=== PATIENT | male | born 1975 | race Caucasian/White ===

== ENCOUNTER 2023-07-16 22:25 | Emergency (ER) | payer OTHER, SELFPAY ==
[2023-07-16 22:26] VITALS: BMI 23.6
[2023-07-16 22:32] VITALS: BP 125/82
[2023-07-16 23:00] VITALS: BP 135/81
[2023-07-16] MEDS: REGLAN 10 MG IV (23:14)
[2023-07-16] MEDS: NSS 1000 IV (23:15)
[2023-07-16] MEDS: MORPHINE SULFATE 4 MG IV (23:15)
[2023-07-16 23:27] LABS: % Basophils 0.6 % (0-2); % Eosinophils 1.1 % (0-6); % Immature Granulocytes 0.5 % (0-0.5); % Lymphocytes 15.4 % (20.5-51.1); % Monocytes 5.7 % (1.7-9.3); % Neutrophils 76.7 % (42.2-75.2); Absolute Basophils 0.1 10^3/uL (0-0.2); Absolute Eosinophils 0.2 10^3/uL (0-0.7); Absolute Immature Granulocytes 0.1 10^3/uL (0-0.05); Absolute Lymphocytes 2.5 10^3/uL (1.2-3.4); Absolute Monocytes 0.9 10^3/uL (0.1-0.6); Absolute Neutrophils 12.5 10^3/uL (1.4-6.5); Hematocrit 36.6 % (39.0-52.0); Mean Corp Hgb Conc. 35.5 g/dL (33.0-37.0); Mean Corpuscular Hgb 30.1 pg (27.0-31.0); Mean Corpuscular Volume 84.7 fL (80.0-94.0); Mean Platelet Volume 9.2 fL (7.4-10.4); Nucleated Red Blood Cells % 0 % (-); Platelet Count 257 10^3/uL (130-400); Red Blood Cell Count 4.32 10^6/uL (4.70-6.10); Red Cell Dist. Width 13.2 % (11.5-14.5); White Blood Cell Count 16.3 10^3/uL (4.8-10.8)
--- NOTE | 2023-07-16 23:37 | ED.GENMED ---
History of Present Illness
General
Chief Complaint: Abdominal Symptoms
Source: patient and ambulance crew
Exam Limitations: none
Time Seen by Provider: 07/16/23 22:54
Nursing documentation reviewed up to this point in time: agreed with
Travel History
Have you had any contact with someone who has COVID-19?: No
Do you have any symptoms of coronavirus? Fever > 100 degrees, chills, cough, shortness of breath, sore throat, loss of taste or smell, muscle aches, or headache?: No
History of Present Illness
History of Present Illness:
This is a 48-year-old gentleman who reports history of 1 prior episode of acute pancreatitis occurring 4 years ago. Patient states he was hospitalized at that time and states pancreatitis was related to alcohol use. He has remained sober since
then and has had no recurrent episodes but tonight while out to dinner with a friend he developed generalized crampy abdominal pain that began shortly after dinner approximately 8:30 PM but has persisted, worsening accompanied with nausea and dry
heaves. Abdominal pain is generalized, crampy and severe in nature associated with shortness of breath, intermittent cramping of his hands. He states current symptoms feel similar to previous episode of pancreatitis.
He does admit to feeling somewhat short of breath with waves of pain describing this as a sense of difficulty taking a deep breath but denies increased abdominal pain with deep breath, denies cough, denies fever but admits to intermittent chills,
intermittent sweats.
No close contacts with similar symptoms.
He denies diarrhea or constipation, denies back pain or chest pain. No dysuria no urgency nor hematuria, denies flank pain. He has not taken anything for discomfort.
No definitive aggravating or relieving factors.
No recent travel nor recent antibiotic use.
He takes no medicines on a daily basis.
He received IV Zofran 4 mg prehospital with mild improvement in nausea but no improvement in pain.
Past History
Past History
ED Past Medical History: Other (Acute pancreatitis related to alcohol use 2020.)
ED Past Surgical History: Appendectomy
Social History
Tobacco: Non-smoker
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
Drug: Marijuana
Personal:
Living: with family
Family History
Family History: Other (Noncontributory)
Phy Exam
Physical Exam
Physical Exam:
GENERAL: 48-year-old gentleman appears his stated age, awake and alert, appears in moderate distress related to pain. Somewhat anxious. Cooperative.
EYE: pupils equal and reactive. anicteric
NECK: Supple, nontender, no meningismus, no significant adenopathy.
ENT: oral mucosa is moist. No rhinorrhea.
CARDIAC: Regular rate and rhythm. no murmur.
LUNGS: Clear breath sounds bilaterally, no acute respiratory distress, no wheezes/rales/rhonchi
ABDOMEN: Soft, nondistended, mild generalized tenderness with deep palpation, no r/g, no cvat. normoactive BS.
NEUROLOGICAL: Alert and oriented x3, no focal neuro deficits.
SKIN: Warm and dry, normal color, skin intact. No rash.
MUSCULOSKELETAL: No C/C/E. peripheral pulses are full and equal b/l. No palpable tenderness.
PSYCH: Mildly anxious. Cooperative.
Course
Orders/Labs/Results
Orders:
Orders
07/16/23 23:04
Electrocardiogram (*1) Urgent
Reason for Study: Abdominal Pain
EKG- Treatment ONCE
0.9% Sodium Chloride 1000 ml [Nss] 1,000 ml IV BOLUS
Morphine Sulfate 4 mg IV NOW STA
07/16/23 23:06
Urinalysis Reflex To Culture Urgent
Metoclopramide [Reglan] 10 mg IV NOW STA
07/16/23 23:13
Complete Blood Count/With Diff Urgent
Comprehensive Metabolic Panel Urgent
Lactic Acid Urgent
Lipase Urgent
07/17/23 01:47
CT Abd/pelvis W Iv Cont Urgent
Comment:
Reason For Exam: gen crampy abd pain, N/V
07/17/23 03:22
Dicyclomine HCl [Bentyl] 20 mg IM NOW STA
Abnormal Lab Results
07/16/23
23:13
WBC 16.3 H 10^3/uL
(4.8-10.8)
RBC 4.32 L 10^6/uL
(4.70-6.10)
Hct 36.6 L %
(39.0-52.0)
Abs Immat Gran (auto) 0.1 H 10^3/uL
(0-0.05)
Absolute Neuts (auto) 12.5 H 10^3/uL
(1.4-6.5)
Absolute Monos (auto) 0.9 H 10^3/uL
(0.1-0.6)
Neutrophils % 76.7 H %
(42.2-75.2)
Lymphocytes % 15.4 L %
(20.5-51.1)
Carbon Dioxide 20 L mmol/L
(22-30)
07/16/23 23:13
07/16/23 23:13
Vital Signs
Initial and Last Documented VS:
Initial Vital Signs
Temp Pulse Resp BP Pulse Ox
98 F 87 20 125/82 100
07/16/23 22:32 07/16/23 22:32 07/16/23 22:32 07/16/23 22:32 07/16/23 22:32
Last Documented Vital Signs
Temp Pulse Resp BP Pulse Ox
98 F 81 16 132/91 99
07/16/23 22:32 07/17/23 02:18 07/17/23 02:18 07/17/23 02:00 07/17/23 02:18
MDM/Problems Addressed
Differential Diagnosis Includes:
Concern for acute gastroenteritis, pancreatitis, small bowel obstruction. Patient has no risk factors for ischemic bowel.
Labs are pending.
Will give IV fluids, IV pain medication and antiemetic.
Will continue to observe and consider imaging depending on results, clinical course.
Chronic conditions affecting care:
1 prior episode of acute pancreatitis 4 years ago.
*Radiology
Radiology exam reviewed: radiology read reviewed
*Pulse Oximetry
Patient hypoxic: no
*EKG
Interpreted by ED Provider?: Yes
Interpretation: normal
Comparison EKG: no comparison EKG present
Rate: normal
Rhythm: sinus arrhythmia
[place]: normal axis
Interval: normal interval
QRS Pattern: normal QRS
Ischemia: no ischemia
*Mask Design Engineer Interpretation
Rate: normal
Interpretation: normal
*Critical Care Note
Total Time (30-74mins, 75-104mins- exclusive of procedures): Not Applicable
Update Note
Update Note:
07/17/2023 0322 AM
Patient has had no further nausea/vomiting after IV metoclopramide, IV fluids.
Overall appears much more comfortable but continues with intermittent generalized crampy abdominal pain. He has had no diarrhea.
Labs show mildly elevated white blood cell count of 16 otherwise unremarkable, normal LFTs, normal lipase, no evidence of pancreatitis.
CAT scan shows questionable/mild colitis of the descending and sigmoid colon versus contracted state. No small bowel obstruction, no free fluid nor free air. Unremarkable CT appearance of the gallbladder, biliary tract and pancreas. No
hydronephrosis nor obstructing stone.
I suspect acute gastroenteritis versus a mild colitis.
Given IM dose of Bentyl and trial oral fluids/ice chips.
07/17/2023 0454 AM
Patient resting comfortably, tolerating ice chips/sips of water and reports significant improvement in intermittent crampy abdominal pain.
Abdomen is soft and nontender.
Will discharge to home with prescription for Zofran ODT for as needed nausea, Bentyl for as needed crampy abdominal pain.
Recommend he limit his diet to clear liquids over the next 24 hours, slowly advance to soft bland foods as tolerated thereafter.
If diarrhea ensues he may take [id number] Imodium.
Prompt follow-up with PCP for recheck.
ED Attending Note
-
Portions of this chart may have been created with voice recognition software.� Occasional wrong word or��sound alike� substitutions may have occurred due to the inherent limitations of voice recognition software.
Discharge Plan
Departure
Patient Disposition: Home (Routine Discharge)
Date of Disposition: 07/17/23
Time of Disposition: 04:55
Patient with high blood pressure during this ER visit?: No
Condition: Good
Discharge Problem:
Acute gastroenteritis
Instructions: Clear Liquid Diet, Viral Gastroenteritis, Adult (DC)
Prescriptions:
New
dicyclomine 20 mg tablet
20 mg PO QID PRN (Reason: abdominal pain) Qty: 20 0RF
ondansetron 4 mg tablet,disintegrating
4 mg PO QID PRN (Reason: nausea and vomiting) Qty: 20 0RF
Referrals:
Alpa Munson MD [Family Provider] - Call in 1-3 days for appt
Activity Restrictions/Additional Instructions:
Limit your diet to only clear liquids today, slowly advance to soft, bland foods as tolerated tomorrow.
A prescription for Zofran�ondansetron has been sent to your pharmacy to be used 4 times daily as needed for nausea/vomiting.
A prescription for Bentyl�dicyclomine has been sent to your pharmacy to be used 4 times daily as needed for crampy abdominal pain.
If diarrhea develops, we recommend you continue to limit your diet to clear liquids and you may take [id number] Imodium 4 times daily as needed for diarrhea.
Interventions
Interventions:
*Risk Screen - Suicide Last Done: 07/16/23 22:26
*General Assessment Last Done: 07/16/23 22:26
*Neglect/Abuse Screening Last Done: 07/16/23 22:26
*ED COVID-19 Vaccine History Last Done: 07/16/23 22:26
KI-Gublod-Ltwwwczons Assessment Last Done: 07/16/23 22:34
[2023-07-16 23:40] LABS: Lactic Acid 1.5 mmol/L (0.7-2.0)
[2023-07-16 23:41] LABS: ALT (SGPT) 28 U/L (0-50); AST (SGOT) 46 U/L (17-59); Albumin 4.6 g/dl (3.5-5.0); Alkaline Phosphatase 73 U/L (38-126); Blood Urea Nitrogen 15 mg/dl (9-20); Calcium 9.4 mg/dl (8.4-10.2); Carbon Dioxide 20 mmol/L (22-30); Chloride 106 mmol/L (98-107); Estimated Creatinine Clearance > 125 ml/min; Glucose 96 mg/dl (70-99); Lipase 161 U/L (23-300); Potassium 3.9 mmol/L (3.5-5.1); Sodium 137 mmol/L (135-145); Total Bilirubin 0.9 mg/dl (0.2-1.3); eGFR > 60.00
[2023-07-17] VITALS: BP 139/77
[2023-07-17 01:00] VITALS: BP 119/83
[2023-07-17 02:00] VITALS: BP 132/91
[2023-07-17] MEDS: BENTYL 20 MG IM (03:36)
[2023-07-17 04:00] VITALS: BP 142/69
[2023-07-17 05:00] VITALS: BP 132/81
== END 2023-07-17 06:17 | disposition home or self-care (01) ==
LOC: EMR 22:25
PROVIDERS: EMERGENCY PHYSICIAN Emergency Medicine; FAMILY PHYSICIAN Internal Medicine
DX: K52.9 Noninfective gastroenteritis and colitis, unspecified (principal); Z87.19 Personal history of other diseases of the digestive system
CPT/HCPCS: 99284; 96374; 96375; 96361; 96372; 74177; 80053; 83605; 83690; 85025; 93005; Q9967